=== PATIENT | female | born 1970 | race Two or more races ===

== ENCOUNTER 2016-06-10 15:33 | Inpatient (IN) | payer MEDICARE ==
[~2016-06-10] VITALS: Ht 160 cm; Wt 52.2 kg
[2016-06-13 11:59] VITALS: BP 155/100
--- NOTE | 2016-06-13 12:30 | NUR ---
Patient arrived on unit with admitting via private motorized wheelchair. accompanied patient. No signs of acute distress noted. VS WNL, all verbalized needs met. clinical research manager Fay and Dr. Lindsay notified, received admitting orders. Patient AAOx4, verbalizes understanding of procedures. Safety and fall precautions maintained, call light put within reach.
--- NOTE | 2016-06-13 17:00 | NUR ---
Patient noted to have decreased LOC, laying in bed on right side. Responsive to light touch only. VS WNL, BP 127/86, P 83. Respirations even and unlabored, RR 18. BS 60, gave 2 orange juice with added sugar, 1 low fat milk, and early dinner. Patient noted to have immediate response and is responsive to name after administering. PRINCIPAL QUALITY ENGINEER noted at bedside, instructed to stay with patient to assist with feeding and watch patient response. Will continue to monitor.
[2016-06-13] MEDS ORDERED: OXYCODONE HCL 5 MG TABLET PO PRN (18:15)
[2016-06-13] MEDS ORDERED: HYDROMORPHONE 1 MG/1 ML DISP.SYRIN IM PRN (18:15)
[2016-06-13] MEDS: METHADONE HCL 10 MG TABLET PO SCH ×2 (18:39→22:15)
[2016-06-13] MEDS ORDERED: METH10TA2 PO (19:15)
[2016-06-13] MEDS ORDERED: BACL20TA PO (19:16)
[2016-06-13] MEDS ORDERED: TAPE75TA2 PO (19:18)
[2016-06-13 20:00] VITALS: BP 135/81
[2016-06-14 08:00] VITALS: BP 140/86
[2016-06-14 08:00] LABS: BASOPHILS % (AUTO) 0.7 % (0.0-2.0); EOSINOPHILS # (AUTO) 0.1 K/uL (0.0-0.7); EOSINOPHILS % (AUTO) 2.5 % (0.0-7.0); HEMATOCRIT 28.3 % (37-47); HEMOGLOBIN 9.1 G/DL (12.0-16.0); LYMPHOCYTES # (AUTO) 1.7 K/uL (20.0-40.0); LYMPHOCYTES % (AUTO) 31.6 % (20.5-51.5); MEAN CORPUSCULAR HEMOGLOBIN 22.4 UUG (27.0-31.0); MEAN CORPUSCULAR HGB CONC 32 g/dL (32.0-37.0); MEAN CORPUSCULAR VOLUME 69.3 FL (81.0-99.0); MONOCYTES # (AUTO) 0.4 K/uL (2.0-10.0); MONOCYTES % (AUTO) 8.4 % (0.0-11.0); NEUTROPHILS # (AUTO) 3.1 K/uL (1.8-8.9); NEUTROPHILS % (AUTO) 56.8 % (38.5-71.5); PLATELET COUNT (AUTO) 282 K/UL (150-450); RED BLOOD CELL COUNT(AUTO) 4.08 MIL/UL (4.2-5.4); WHITE BLOOD COUNT (AUTO) 5.3 K/UL (4.0-11.2)
--- NOTE | 2016-06-14 08:00 | NUR ---
Received pt this am, no signs of acute distress. Respirations even and unlabored. Environmental check for safety done, safety precautions maintained. Bed in low position, call light within reach.
[2016-06-14 08:52] LABS: ALBUMIN 2.8 g/dL (3.4-5.0); BILIRUBIN,TOTAL 0.3 mg/dL (0.2-1.0); CALCIUM 8.5 mg/dL (8.5-10.1); CREATININE 0.6 mg/dL (0.6-1.3); MAGNESIUM 1.7 mg/dL (1.8-2.4); PHOSPHOROUS 2.8 mg/dL (2.5-4.9); POTASSIUM 3.5 mmol/L (3.5-5.1); TOTAL PROTEIN, SERUM 6.2 g/dL (6.4-8.2)
[2016-06-14] MEDS: METHADONE HCL 10 MG TABLET PO SCH ×4 (09:35→23:42)
[2016-06-14 09:48] LABS: BASOPHILS % (MANUAL) 2 % (0-2); EOSINOPHILS % (MANUAL) 2 % (0-8); LYMPHOCYTES % (MANUAL) 33 % (20-40); MONOCYTES % (MANUAL) 6 % (2-10); NEUTROPHILS % (MANUAL) 57 % (42-75)
[2016-06-14 09:50] LABS: ANISOCYTOSIS 2+; HYPOCHROMASIA 2+
[2016-06-14 09:51] LABS: PLATELET ESTIMATE ADEQUATE
[2016-06-14 11:52] LABS: THYROID STIMULATING HORMONE 1.222 mIU/mL (0.358-3.740)
[2016-06-14] MEDS ORDERED: MAGNESIUM OXIDE 400 MG TABLET PO ONE (14:45)
[2016-06-14] MEDS ORDERED: POTASSIUM CHLORIDE 20 MEQ TAB.PRT.SR PO ONE (14:45)
[2016-06-14 16:00] VITALS: BP 164/110
[2016-06-14] MEDS: FERROUS SULFATE 325 MG TABEC PO SCH ×2 (16:01→21:16)
[2016-06-14] MEDS: CYANOCOBALAMIN 1000 MCG/ML VIAL IM SCH (16:02)
[2016-06-14] MEDS: CLONIDINE HCL 0.1 MG TABLET PO PRN (17:26)
[2016-06-14 21:17] VITALS: BP 133/86
[2016-06-15] MEDS: PATIENT MAY USE OWN MED- MD OK PO PRN (01:43)
--- NOTE | 2016-06-15 05:59 | NUR ---
Patient alert and oriented, verbally able to let needs known. Slept intermittently throughout the night. Did have some complains of pain. Medication was administered with relief. Patient has call light within reach all needs attended to.
[2016-06-15] MEDS: METHADONE HCL 10 MG TABLET PO SCH ×3 (06:24→17:58)
--- NOTE | 2016-06-15 08:00 | NUR ---
Received patient awake, alert, coherent, verbally responsive, not in any form of acute distress. She denies any pain or discomfort at this time. Assisted to her needs. Call light placed within reach.
[2016-06-15] MEDS ORDERED: MIRALAX 17 GM POWD.PACK PO PRN (08:45)
[2016-06-15] MEDS: FERROUS SULFATE 325 MG TABEC PO SCH ×2 (09:09→21:01)
[2016-06-15] MEDS: CYANOCOBALAMIN 1000 MCG/ML VIAL IM SCH (09:09)
[2016-06-15] MEDS: HYDROCHLOROTHIAZIDE 12.5 MG CAPSULE PO SCH (09:09)
--- NOTE | 2016-06-15 19:30 | NUR ---
RECEIVED PATIENT QUIETLY RESTING IN BED WITH ACCEPTABLE LEVEL OF CHRONIC PAIN ACCORDING TO PATIENT.SEVERE KYPHOSIS PRESENT WITH PATIENT FEELING BETTER WHILE SITTING AT BEDSIDE DOES NOT REQUEST ANYTHING FOR PAIN AT THIS TIME.INSTRUCTED TO CALL RN FOR ANY C/O. CALL LIGHT WITHIN REACH AAT. PATIENT VERBALLY UNDERSTANDS
[2016-06-15 20:30] VITALS: BP 141/91
--- NOTE | 2016-06-15 21:00 | NUR ---
CLONIDINE 0.1 MG PO GIVEN FOR HTN/ DIASTOLIC OVER 100
[2016-06-15] MEDS: CLONIDINE HCL 0.1 MG TABLET PO PRN (21:02)
[2016-06-15] MEDS: DOCUSATE SODIUM 100 MG CAPSULE PO SCH (21:02)
[2016-06-16] MEDS: METHADONE HCL 10 MG TABLET PO SCH ×5 (00:07→23:42)
[2016-06-16] MEDS: BACLOFEN 20 MG TABLET PO PRN ×2 (01:38→16:16)
--- NOTE | 2016-06-16 01:38 | NUR ---
BACLOFEN PO GIVEN FOR C/O MUSCLE SPASM AT LOWER BACK WITH INABILITY TO SLEEP. GIVEN AT THIS TIME WITH GOOD RELIEF , ENOUGH FOR PATIENT TO REST COMFORTABLEY THEREAFTER
[2016-06-16 06:00] VITALS: BP 122/66
--- NOTE | 2016-06-16 06:00 | NUR ---
PATIENT SLEPT ONLY FAIR TONIGHT. PATIENT'S ROOMATE KEEPING HER AWAKE. CHRONIC PAIN MANAGED WITH METHADONE Q 6 HRS AND BACLOFEN PO X1 FOR C/O MUSCLE SPASM. AMBULATED TO BATHROOM WITH WALKER AND CONTACT GUARD ASSIST OF ONE. DOES C/O INCREASED PAIN WITH THIS ACTIVITY. REQUIRED ONE DOSE OF CLONIDINE 0.1 MG PO FOR HTN, 153/112. THIS MORNINGS BP WAS 122/66 WITH HR OF 66/MIN. COMFORTABLE AT THIS TIME. RESTING QUIETLY WITH CALL LIGHT IN REACH
--- NOTE | 2016-06-16 08:00 | NUR ---
RECEIVED PATIENT ASLEEP IN BED. NO SIGNS OF DISTRESS. CALL LIGHT WITHIN REACH. ENSURED SAFETY. WILL CONTINUE TO MONITOR
[2016-06-16] MEDS: CYANOCOBALAMIN 1000 MCG/ML VIAL IM SCH (09:26)
[2016-06-16] MEDS: HYDROCHLOROTHIAZIDE 12.5 MG CAPSULE PO SCH (09:26)
[2016-06-16] MEDS: FERROUS SULFATE 325 MG TABEC PO SCH ×2 (09:26→20:59)
--- NOTE | 2016-06-16 16:20 | NUR ---
PATIENT COMPLAINED OF PAIN RATED 4/10. BACLOFEN PRN ADMINISTERED. VITAL SIGNS WITHIN NORMAL LIMITS. BP- 145/98. ASSISTED PATIENT'S NEEDS AND ASSISTED IN BATHROOM TRIPS.
[2016-06-16 16:47] VITALS: BP 145/98
--- NOTE | 2016-06-16 18:01 | NUR ---
DUE MEDS GIVEN. KEPT PATIENT COMFORTABLE AND ENSURED SAFETY THROUGHOUT THE SHIFT. PAIN RATED 3/10 AT THIS TIME. NO OTHER COMPLAINTS AT THIS TIME. BP AT 145/98
--- NOTE | 2016-06-16 19:30 | NUR ---
Received patient sleeping with no s/s of distress. Call light within reach. Will continue to monitor.
[2016-06-16] MEDS: PATIENT MAY USE OWN MED- MD OK PO PRN (20:58)
[2016-06-16] MEDS: DOCUSATE SODIUM 100 MG CAPSULE PO SCH (20:59)
[2016-06-16 21:40] VITALS: BP 125/86
[2016-06-17] MEDS: METHADONE HCL 10 MG TABLET PO SCH ×3 (06:21→18:12)
--- NOTE | 2016-06-17 06:42 | NUR ---
Patient awake with no s/s of distress. Verbalized a decrease in pain level after interventions. Slept well through the night. Call light kept within reach. Supervised/assisted during ambulation to the bathroom. Snacks provided as requested by patient herself. Due meds given. Needs attended. Frequent checks done throughout shift to ensure safety. Endorsed accordingly.
[2016-06-17 07:44] VITALS: BP 130/100
--- NOTE | 2016-06-17 07:55 | NUR ---
RECEIVED THE PATIENT AWAKE ALERT X3 SITTING UP IN BED WATCHING TV. SHE IS ON ROOM AIR. DENIES ANY MAJOR PAIN BUT DID STATE SHE HAS CHRONIC LOWER BACK PAIN THAT IS ABOUT A 1/10 AT THIS PRESENT TIME. LUNG SOUNDS ARE CLEAR THROUGHOUT. WILL CONTINUE TO MONITOR THE PATIENT AND ADDRESS ANY NEEDS SHE MAY HAVE TODAY.
[2016-06-17 08:00] VITALS: BP 160/100
[2016-06-17] MEDS: CYANOCOBALAMIN 1000 MCG/ML VIAL IM SCH (08:06)
[2016-06-17] MEDS: FERROUS SULFATE 325 MG TABEC PO SCH ×2 (08:06→21:22)
[2016-06-17] MEDS: HYDROCHLOROTHIAZIDE 12.5 MG CAPSULE PO SCH (08:06)
--- NOTE | 2016-06-17 08:09 | NUR ---
PATIENT BLOOD PRESSURE IN RIGHT ARM IS 130/100 AND IN LEFT ARM IS 160/100. PATIENT WAS GIVEN AM BLOOD PRESSURE MEDICATION SHE REFUSED THE CATAPRES AT THIS TIME SHE STATED SHE WANTED TO WAIT TO SEE IF HER AM BLOOD PRESSURE MEDICATION WOULD BRING THE PRESSURE DOWN. WILL RECHECK BLOOD PRESSURE IN 40 MIN.
--- NOTE | 2016-06-17 09:05 | NUR ---
Patient BP is now 132/82,HR 75
--- NOTE | 2016-06-17 10:33 | NUR ---
Patient is sitting at the bedside with clothes on . No complaints at this time . She stated " I had PT for 4 days straight and today is my rest day". Patient is not on the schedule for PT or OT today.
[2016-06-17 12:44] VITALS: BP 160/100
--- NOTE | 2016-06-17 13:45 | NUR ---
Patient continues to sit on the side of the bed , no complaints at this time.
--- NOTE | 2016-06-17 14:52 | NUR ---
Diaper change is done at this time.
[2016-06-17] MEDS: CLONIDINE HCL 0.1 MG TABLET PO PRN (16:45)
--- NOTE | 2016-06-17 16:50 | NUR ---
Blood Pressure is 159/100 , patient was given Catapres
--- NOTE | 2016-06-17 17:06 | NUR ---
No complaints at this time.
[2016-06-17 17:21] VITALS: BP 159/100
[2016-06-17 18:13] VITALS: BP 137/85
--- NOTE | 2016-06-17 18:14 | NUR ---
Patient blood pressure is 137/87 Hr. 77
--- NOTE | 2016-06-17 19:30 | NUR ---
Received patient awake with no s/s of distress. Denies pain at this time. Call light within reach. Assured of frequent checks throughout shift. Will continue to monitor.
[2016-06-17] MEDS: DOCUSATE SODIUM 100 MG CAPSULE PO SCH (21:23)
[2016-06-17 22:23] VITALS: BP 134/90
[2016-06-18] MEDS: METHADONE HCL 10 MG TABLET PO SCH ×4 (00:09→18:09)
--- NOTE | 2016-06-18 06:30 | NUR ---
Patient awake with no s/s of distress. Verbalized a decrease in pain level after interventions. Slept well through the night. Call light kept within reach. Supervised/assisted during ambulation. Snacks offered. Due meds given. Needs attended. Frequent checks done to ensure safety. Endorsed accordingly.
[2016-06-18] MEDS: FERROUS SULFATE 325 MG TABEC PO SCH ×2 (08:14→21:35)
[2016-06-18] MEDS: HYDROCHLOROTHIAZIDE 25 MG TABLET PO SCH (08:14)
[2016-06-18] MEDS: CHOLECALCIFEROL 1,000 UNIT TABLET PO SCH (08:14)
[2016-06-18] MEDS: CYANOCOBALAMIN 1000 MCG/ML VIAL IM SCH (08:15)
--- NOTE | 2016-06-18 08:30 | NUR ---
Received patient in bed sitting. No s/s of distress noted. Denied pain at the moment, c/o of slight headache but patient said it is normal for her to have that. A/O x 4, cooperative, follow instructions and compliant with medications. V/S wnl. Will continue monitoring throughout the day.
[2016-06-18 09:00] VITALS: BP 140/95
[2016-06-18] MEDS ORDERED: HYDROCHLOROTHIAZIDE 12.5 MG CAPSULE PO SCH (09:00)
[2016-06-18] MEDS: BACLOFEN 20 MG TABLET PO PRN (11:31)
[2016-06-18] MEDS ORDERED: PANTOPRAZOLE SODIUM 40 MG TABLET.DR PO ONE (13:00)
--- NOTE | 2016-06-18 16:35 | NUR ---
IDT MEETING 06/18/16
--- NOTE | 2016-06-18 18:13 | NUR ---
Patient in wheelchair eating. No s/s of distress noted. Compliant with interventions and therapy. C/O of lower back pain, medicated as ordered. Report will be given to the next shift nurse.
[2016-06-18] MEDS: CLONIDINE HCL 0.1 MG TABLET PO PRN (18:53)
[2016-06-18] MEDS: DOCUSATE SODIUM 100 MG CAPSULE PO SCH (21:35)
[2016-06-18 22:29] VITALS: BP 109/69
[2016-06-19] MEDS: METHADONE HCL 10 MG TABLET PO SCH ×4 (00:42→18:04)
--- NOTE | 2016-06-19 05:20 | NUR ---
Patient slept well throughout the night, showed no signs of respiratory distress. Requested no PRN medications. Patient has call light within reach. all needs attended to.
[2016-06-19] MEDS ORDERED: PANTOPRAZOLE SODIUM 40 MG TABLET.DR PO SCH (07:00)
--- NOTE | 2016-06-19 07:20 | NUR ---
PATIENT RECEIVED IN BED IN STABLE CONDITION. NO S/S OF DISTRESS NOTED. DENIED PAIN AT THE MOMENT. PATIENT IS AMBULATORY WITH ASSISTANCE. CALL LIGHT WITHIN REACH. SAFETY AND COMFORT PROVIDED. WILL CONTINUE MONITORING DURING THE DAY
--- NOTE | 2016-06-19 07:20 | NUR ---
Patient received in bed awake and alert. No s/s of distress noted. Pain 3/10 without activity or mobility in the right knee, and 8/10 when he mobilized the leg. Patient stated he is hungry, feel better than yesterday, and he is ready to work with therapist. Urinal and call light at reach. Safety and comfort provided. Will continue monitoring. Addendum: 06/19/16 at 0757 by JULIOCESAR CISNEROS RN wrong patient
[2016-06-19] MEDS: CYANOCOBALAMIN 1000 MCG/ML VIAL IM SCH (08:33)
[2016-06-19] MEDS: HYDROCHLOROTHIAZIDE 25 MG TABLET PO SCH (08:34)
[2016-06-19] MEDS: CHOLECALCIFEROL 1,000 UNIT TABLET PO SCH (08:34)
[2016-06-19] MEDS: FERROUS SULFATE 325 MG TABEC PO SCH ×2 (08:34→21:13)
[2016-06-19 08:57] VITALS: BP 152/92
[2016-06-19] MEDS: BACLOFEN 20 MG TABLET PO PRN (11:38)
--- NOTE | 2016-06-19 11:41 | NUR ---
PT. SEEN USING WHEELCHAIR TO GET AROUND THE FLOOR. PT SEEN DOING RANGE OF MOTION EXERCISES ACCORDING TO A HANDOUT GIVEN BY PHYSICAL THERAPIST. PT GIVEN METHADONE AND BACLOFEN ON REPORTS OF BACK PAIN AND MUSCLE SPASM. WILL REASSESS FOR PAIN LEVEL.
--- NOTE | 2016-06-19 18:29 | NUR ---
PT COMPLAINED ABOUT PAIN 5/10 ON BACK. PT GIVEN METHADONE. PT CONTINUES TO DO ROM EXERCISES BY HER SELF. TO PREVENT STIFFNESS ON BACK ON LEGS. PT ABLE TO TOLERATE DIET. SAFETY WAS PROVIDED THROUGHOUT THE DAY. VITAL SIGNS DAY STABLE. WILL CONTINUE TO REASSESS AND PROVIDE INTERVENTIONS.
[2016-06-19 20:21] VITALS: BP 118/70
[2016-06-19] MEDS: DOCUSATE SODIUM 100 MG CAPSULE PO SCH (21:13)
[2016-06-20] MEDS: METHADONE HCL 10 MG TABLET PO SCH ×5 (00:54→23:35)
--- NOTE | 2016-06-20 06:26 | NUR ---
Patient is alert and oriented, verbally able to let needs known. Slept well throughout the night, had no episodes of respiratory distress. Has call light within reach, all needs attended to.
--- NOTE | 2016-06-20 07:10 | NUR ---
Patient received from operations supervisor 2nd shift, sitting up at edge of the bed comfortably in bed. No signs of acute distress noted, AAOx3, respirations even and unlabored. No complaints of pain or discomfort at this time, VS WNL. No other verbalized needs at this time. Safety precautions maintained. Call light within reach.
[2016-06-20 07:35] VITALS: BP 159/91
[2016-06-20 08:01] VITALS: BP 113/74
[2016-06-20] MEDS: FERROUS SULFATE 325 MG TABEC PO SCH ×2 (08:41→20:53)
[2016-06-20] MEDS: HYDROCHLOROTHIAZIDE 25 MG TABLET PO SCH (08:41)
[2016-06-20] MEDS: CHOLECALCIFEROL 1,000 UNIT TABLET PO SCH (08:41)
[2016-06-20] MEDS: CYANOCOBALAMIN 1000 MCG/ML VIAL IM SCH (08:41)
[2016-06-20] MEDS: PATIENT MAY USE OWN MED- MD OK PO PRN (17:04)
--- NOTE | 2016-06-20 17:07 | NUR ---
Nucynta 75mg PO given for pain level 7/10 to left shoulder, throbbing and aching, relieved by pain medication, inactivity, and distraction. VS WNL, no other signs of acute distress noted. Respirations even and unlabored, RR 18.
--- NOTE | 2016-06-20 17:37 | NUR ---
Patient reports pain level at 4/10, effective with Methadone as ordered. No other signs of distress noted, respirations even and unlabored, RR 18.
--- NOTE | 2016-06-20 18:54 | NUR ---
Report given to nightclub manager, patient in no signs of acute distress, no verbalized needs at this time. Sitting up comfortably in wheelchair with dinner. Respirations even and unlabored, safety precautions maintained. Call light within reach, bed in low position.
--- NOTE | 2016-06-20 19:30 | NUR ---
Received patient sitting on her bed with no s/s of distress. Respirations even and unlabored. Disposition pleasant. Reported that recent dose of pain meds gradually taking effect. Call light is within reach. Will continue to monitor. Assured of frequent checks during the shift. Reminded to call for assistance whenever needed.
[2016-06-20] MEDS: DOCUSATE SODIUM 100 MG CAPSULE PO SCH (20:53)
[2016-06-20] MEDS: CLONIDINE HCL 0.1 MG TABLET PO PRN (21:31)
--- NOTE | 2016-06-20 21:34 | NUR ---
2119--BP taken: 168/95. Clonidine 0.1mg given as ordered. Will recheck for effectiveness and continue to monitor. Patient advised to stay resting in bed. Position of comfort ensured.
--- NOTE | 2016-06-20 22:15 | NUR ---
BP rechecked: 144/95. Verbalized feeling "ok" and comfortable. No discomfort or pain at this time. Kept in position of comfort.
[2016-06-20 22:23] VITALS: BP 144/95
[2016-06-21 05:38] LABS: BASOPHILS % (AUTO) 0.6 % (0.0-2.0); EOSINOPHILS # (AUTO) 0.1 K/uL (0.0-0.7); EOSINOPHILS % (AUTO) 3.1 % (0.0-7.0); HEMATOCRIT 30.1 % (37-47); HEMOGLOBIN 9.5 G/DL (12.0-16.0); LYMPHOCYTES # (AUTO) 1.9 K/UL (0.8-4.8); LYMPHOCYTES % (AUTO) 45.5 % (20.5-51.5); MEAN CORPUSCULAR HEMOGLOBIN 22.1 UUG (27.0-31.0); MEAN CORPUSCULAR HGB CONC 32 g/dL (32.0-37.0); MEAN CORPUSCULAR VOLUME 69.9 FL (81.0-99.0); MONOCYTES # (AUTO) 0.4 K/UL (0.1-1.30); MONOCYTES % (AUTO) 9.2 % (0.0-11.0); NEUTROPHILS # (AUTO) 1.6 K/UL (1.8-8.9); NEUTROPHILS % (AUTO) 41.6 % (38.5-71.5); PLATELET COUNT (AUTO) 329 K/UL (150-450); RED BLOOD CELL COUNT(AUTO) 4.32 MIL/UL (4.2-5.4); RED CELL DISTRIBUTION WIDTH 19.6 % (11.5-14.5)
[2016-06-21 05:58] LABS: ALBUMIN 2.9 g/dL (3.4-5.0); BILIRUBIN,TOTAL 0.2 mg/dL (0.2-1.0); CALCIUM 8.3 mg/dL (8.5-10.1); CREATININE 0.6 mg/dL (0.6-1.3); PHOSPHOROUS 4.2 mg/dL (2.5-4.9); POTASSIUM 3.5 mmol/L (3.5-5.1); TOTAL PROTEIN, SERUM 6.1 g/dL (6.4-8.2)
[2016-06-21] MEDS: METHADONE HCL 10 MG TABLET PO SCH ×4 (06:08→23:35)
--- NOTE | 2016-06-21 06:37 | NUR ---
Patient went back to sleep after taking morning meds. No s/s of distress. Respirations even and unlabored. Snacks provided before sleeping upon patient's request. Call light kept within reach. Frequent checks done. Supervised during ambulation. Kept comfortable. Safety measures observed. Due meds given. Needs attended. Endorsed accordingly.
--- NOTE | 2016-06-21 07:10 | NUR ---
[facility] received from [facility] shift [facility], resting comfortably in bed, no signs of acute distress noted. VS WNL, AAOx3, respirations even and unlabored. No other verbalized needs at this time, safety and fall precautions maintained, call light within reach.
[2016-06-21 08:31] VITALS: BP 137/67
[2016-06-21] MEDS: FERROUS SULFATE 325 MG TABEC PO SCH ×2 (08:44→20:45)
[2016-06-21] MEDS: CHOLECALCIFEROL 1,000 UNIT TABLET PO SCH (08:44)
[2016-06-21] MEDS: HYDROCHLOROTHIAZIDE 25 MG TABLET PO SCH (08:45)
[2016-06-21] MEDS: CYANOCOBALAMIN 1000 MCG/ML VIAL IM SCH (08:45)
--- NOTE | 2016-06-21 12:50 | NUR ---
BP taken: 157/104, pain 8/10 for headache. Clonidine 0.1mg given as ordered. Will recheck for effectiveness and continue to monitor. Patient advised to stay resting in bed, eating lunch. Safety precautions maintained, call light within reach.
[2016-06-21] MEDS: CLONIDINE HCL 0.1 MG TABLET PO PRN (12:51)
--- NOTE | 2016-06-21 13:20 | NUR ---
BP taken: 143/96, pain 5/10 for headache, reports pain more managed and more resolved. Safety and comfort measures maintained and provided, low lighting provided to promote more relaxed environment. Call light within reach, advised to rest in bed.
--- NOTE | 2016-06-21 18:20 | NUR ---
Patient reports pain for headache 09/18. Requested Nucynta for pain as ordered. VS WNL, respirations even and unlabored. Safety precautions maintained, call light within reach.
[2016-06-21] MEDS: PATIENT MAY USE OWN MED- MD OK PO PRN (18:31)
--- NOTE | 2016-06-21 18:50 | NUR ---
Patient reports pain 5/10 for headache, relieved with Nucynta. VS WNL, respirations even and unlabored, no change in LOC. Will continue to monitor and endorse to pot puller. Safety precautions maintained, call light within reach.
--- NOTE | 2016-06-21 19:04 | NUR ---
Patient endorsed to scene shifter, resting comfortably in bed, VS WNL. No signs of acute distress noted, respirations even and unlabored. No verbalized needs at this time. Safety and fall precautions maintained, call light within reach.
[2016-06-21] MEDS: DOCUSATE SODIUM 100 MG CAPSULE PO SCH (20:45)
[2016-06-21 20:47] VITALS: BP 155/91
--- NOTE | 2016-06-22 05:55 | NUR ---
Patient alert and oriented, verbally able to let needs known. Showed no signs of respiratory distress. Able to reposition self, assistance needed to bathroom only. Patient does have call light within reach. All needs attended to, slept comfortably all night.
[2016-06-22] MEDS: METHADONE HCL 10 MG TABLET PO SCH ×3 (05:58→17:51)
[2016-06-22 08:00] VITALS: BP 143/87
--- NOTE | 2016-06-22 08:19 | NUR ---
Received patient awake resting comfortably in bed. No signs or symptoms of distress. Alert and oriented. No complaints of discomfort at this time. Call light within reach.
[2016-06-22] MEDS: HYDROCHLOROTHIAZIDE 25 MG TABLET PO SCH (09:28)
[2016-06-22] MEDS: CYANOCOBALAMIN 1000 MCG/ML VIAL IM SCH (09:28)
[2016-06-22] MEDS: FERROUS SULFATE 325 MG TABEC PO SCH ×2 (09:28→20:30)
[2016-06-22] MEDS: CHOLECALCIFEROL 1,000 UNIT TABLET PO SCH (09:28)
[2016-06-22] MEDS: AMLODIPINE 5 MG TABLET PO SCH (09:29)
--- NOTE | 2016-06-22 14:10 | NUR ---
Patient complained of pain rated as 5/10. Nucynta 1 tab given. No s/s of distress. Ensured patient safety. Will continue to monitor.
[2016-06-22] MEDS: PATIENT MAY USE OWN MED- MD OK PO PRN (14:14)
--- NOTE | 2016-06-22 18:10 | NUR ---
Patient eating diner. Tolerated therapy, diet and medications well. Rated pain as 2/10. Patient at dining room with family.
[2016-06-22] MEDS: DOCUSATE SODIUM 100 MG CAPSULE PO SCH (20:30)
[2016-06-22] MEDS: CLONIDINE HCL 0.1 MG TABLET PO PRN (20:53)
--- NOTE | 2016-06-22 20:53 | NUR ---
PRN clonidine given to patient for b/p 158/105, will recheck blood pressure in about an hour
[2016-06-22 20:55] VITALS: BP 158/105
[2016-06-22 22:22] VITALS: BP 127/85
--- NOTE | 2016-06-22 22:23 | NUR ---
Rechecked b/p with readings of 127/85 and HR 81, patient alert and oriented denies and discomfort at this time.
[2016-06-23] MEDS: METHADONE HCL 10 MG TABLET PO SCH ×4 (00:21→18:44)
--- NOTE | 2016-06-23 06:51 | NUR ---
Patient alert and oriented and verbally able to let needs known. Slept well throughout the night, had no episodes of respiratory distress. Call light is within reach, will continue to monitor.
--- NOTE | 2016-06-23 07:56 | NUR ---
Received patient in bed awake, verbally responsive, coherent, not in any form of acute distress. She denies any pain or discomfort at this time. Environmental check for safety done. Call light placed within reach.
[2016-06-23 08:18] VITALS: BP 139/96
[2016-06-23] MEDS: FERROUS SULFATE 325 MG TABEC PO SCH ×2 (09:26→20:40)
[2016-06-23] MEDS: CYANOCOBALAMIN 1000 MCG/ML VIAL IM SCH (09:26)
[2016-06-23] MEDS: CHOLECALCIFEROL 1,000 UNIT TABLET PO SCH (09:26)
[2016-06-23] MEDS: AMLODIPINE 5 MG TABLET PO SCH (09:27)
[2016-06-23] MEDS: HYDROCHLOROTHIAZIDE 25 MG TABLET PO SCH (09:27)
[2016-06-23] MEDS: PATIENT MAY USE OWN MED- MD OK PO PRN (17:45)
--- NOTE | 2016-06-23 19:30 | NUR ---
Received report from AUGUST Vazquez. Received patient sitting up at side of the bed. Alert and verbally responsive. Able to make needs known. No c/ of pain and discomfort at this time. Patient verbalize that her pain is tolerable at this time. No acute distress. No SOB. On room air. All needs attended to promptly. Bed in low position. Call light within reach. Will continue to monitor.
[2016-06-23 20:00] VITALS: BP 156/97
[2016-06-23] MEDS: DOCUSATE SODIUM 100 MG CAPSULE PO SCH (20:40)
[2016-06-24] MEDS: METHADONE HCL 10 MG TABLET PO SCH ×3 (00:06→12:46)
--- NOTE | 2016-06-24 06:09 | NUR ---
Patient awake at this time. Slept through out the night. Appears rested. No acute distress noted. Methadone give as ordered. Pain level 4/10 at this time. All needs attended to promptly. Call light within reach. Will continue to monitor.
[2016-06-24 08:23] VITALS: BP 143/88
[2016-06-24] MEDS: CHOLECALCIFEROL 1,000 UNIT TABLET PO SCH (08:59)
[2016-06-24 09:00] VITALS: BP 143/88
[2016-06-24] MEDS: FERROUS SULFATE 325 MG TABEC PO SCH (09:00)
[2016-06-24] MEDS: AMLODIPINE 5 MG TABLET PO SCH (09:00)
[2016-06-24] MEDS: HYDROCHLOROTHIAZIDE 25 MG TABLET PO SCH (09:00)
[2016-06-24] MEDS: CYANOCOBALAMIN 1000 MCG/ML VIAL IM SCH (09:01)
--- NOTE | 2016-06-24 15:00 | NUR ---
Received discharge order to home from Dr. Lindsay. Order carried out. Patient made aware and agreeable. Dr. Kimball family development extension specialist for Dr. Powell in the facility reconciled medications for discharge and gave prescription. Orders faxed to the pharmacy.
--- NOTE | 2016-06-24 18:11 | NUR ---
1745 Discharged patient to home with [facility], picked up by Eyad () and Melissa (daughter) via private car. Patient remains alert, verbally responsive, coherent, afebrile, not in any form of acute distress. She denies any pain or discomfort at this time. Discharge instructions given to the patient and verbalized understanding. Pharmacist spoke to patient with regards to medications and verbalized understanding. Discharge papers signed by and provided to the patient including medication reconciliation and prescription. All belongings brought home by the patient.
== END 2016-06-24 17:45 | disposition home health service (06) | DRG 74 ==
PROVIDERS: ADMIT Physical Medicine & Rehabilitation Pain Medicine; ATTEND Physical Medicine & Rehabilitation Pain Medicine
DX: G83.4 Cauda equina syndrome (principal); D68.59 Other primary thrombophilia; R53.81 Other malaise; G82.20 Paraplegia, unspecified; M96.1 Postlaminectomy syndrome, not elsewhere classified; G89.29 Other chronic pain; M21.372 Foot drop, left foot; M21.371 Foot drop, right foot; Z83.3 Family history of diabetes mellitus; Z84.1 Family history of disorders of kidney and ureter; R53.1 Weakness; E53.8 Deficiency of other specified B group vitamins; D50.9 Iron deficiency anemia, unspecified; R03.0 Elevated blood-pressure reading, without diagnosis of hypertension; R19.5 Other fecal abnormalities; M51.16 Intervertebral disc disorders with radiculopathy, lumbar region; E55.9 Vitamin D deficiency, unspecified
CPT/HCPCS: 36415; 82306; 83550; 83735; 84100; 84443; 85025; 86140; 97110; 97112; 97116; 97530; 97535; A4663; J3420